=== PATIENT | female | born 1965 | race Caucasian/White ===

== ENCOUNTER 2025-06-27 10:29 | Outpatient (CLI) | payer BC | END 2025-06-27 10:30 | disposition home or self-care (01) | LOC: CSHMAMMO 10:29 | PROVIDERS: ATTEND Specialist | DX: C50.911 Malignant neoplasm of unspecified site of right female breast (principal) | CPT/HCPCS: 96372; A9697 ==

== ENCOUNTER 2025-06-27 11:16 | Outpatient (CLI) | payer BC ==
[2025-06-27 12:40] LABS: #Basophils 0.04 10x3/uL (0.0-0.2); #Eosinophils 0.11 10x3/uL (0.0-0.5); #Monocytes 0.46 10x3/uL (0.0-1.1); #Neutrophils 3.73 10x3/uL (1.5-8.4); %Basophils 0.7 % (0.0-2.0); %Eosinophils 1.8 % (0.0-6.0); %Lymphocytes 29.2 % (18.0-47.0); %Monocytes 7.5 % (0.0-10.0); %Neutrophils 60.6 % (40.0-75.0); Hematocrit 38.7 % (34.9-44.5); Hemoglobin 12.6 g/dL (12.0-15.5); Mean Corpuscular Hemoglobin 29.0 pg (27.0-33.0); Mean Corpuscular Volume 89.2 fL (81.6-98.3); Platelet Count 301 10x3/uL (150-450); Red Blood Cell (RBC) Count 4.34 10x6/uL (3.90-5.03); White Blood Cell (WBC) Count 6.14 10x3/uL (3.5-10.5)
[2025-06-27 12:45] LABS: Anion Gap 11 mmol/L (10-20); BUN (Urea Nitrogen) 19 mg/dL (9.8-20.1); Calc. Creatinine Clearance 0 mL/min (70-130); Calcium 9.1 mg/dL (7.8-10.44); Carbon Dioxide 28 mmol/L (22-29); Chloride 104 mmol/L (98-107); Glucose 124 mg/dL (70-105); Potassium 4.0 mmol/L (3.5-5.1); Sodium 139 mmol/L (136-145)
== END 2025-06-27 11:17 | disposition home or self-care (01) ==
LOC: CSHLAB 11:16
PROVIDERS: ATTEND Specialist
DX: Z01.812 Encounter for preprocedural laboratory examination (principal); C50.911 Malignant neoplasm of unspecified site of right female breast
CPT/HCPCS: 80048; 85025

== ENCOUNTER 2025-07-02 05:59 | Day surgery (SDC) | payer BC ==
[2025-06-27 12:24] VITALS: BMI 35.3
[2025-07-02] MEDS ORDERED: Bupivacaine/Epinephrine 0.25% 30 ML VIAL ONE (07:01)
[2025-07-02] MEDS ORDERED: Acetaminophen 500 MG TAB ONE (07:22)
[2025-07-02] MEDS ORDERED: Ketorolac Tromethamine 30 MG (1 mL) VIAL ONE (07:22)
[2025-07-02] MEDS ORDERED: CEFAZOLIN 2 GM VIAL ONE (07:33)
[2025-07-02] MEDS ORDERED: PROPOFOL 20 ML ONE ×2 (07:42→07:51)
== END 2025-07-02 10:53 | disposition home or self-care (01) ==
LOC: CSHSDC 05:59
PROVIDERS: ATTEND Specialist
PROC: 0HBT0ZZ Excision of Right Breast, Open Approach (ICD-10-PCS; principal; 2025-07-02)
DX: C50.811 Malignant neoplasm of overlapping sites of right female breast (principal)
CPT/HCPCS: 76098; 88307; C1713; J1885; J2250; J2704; J3010